=== PATIENT | male | born 1990 | race Caucasian/White ===

== ENCOUNTER 2022-10-15 10:52 | Emergency (ER) | payer OTHER, SELFPAY ==
[2022-10-15 10:54] VITALS: BP 142/82; PULSE 65; RESP 16; TEMP 36.8; O2SAT 100
[2022-10-15] MEDS: KETOROLAC 30 MG/ML VIAL (*BKC) IM (11:52)
[2022-10-15] MEDS: diazePAM INJ (*CRX) 10 MG/2 ML SYRINGE 5 MG IM (11:52)
[2022-10-15] MEDS: LIDOCAINE 5% PATCH 1 PATCH TRANSDERM (11:53)
--- NOTE | 2022-10-15 17:46 | ED.NECK ---
HPI - Neck Pain/Injury General Chief Complaint: Neck Pain/Injury Stated Complaint: neck pain Time Seen by Provider: 10/15/22 11:36 History of Present Illness HPI Narrative: 31-year-old male presents with pain to his neck started about 2 days ago, worse with movement from side to side, no fevers or chills or headache, no weakness or numbness anywhere, he had had a massage earlier which had helped but woke up this morning feeling worse, had had a sprain neck in the past that improved with muscle relaxants. Related Data Allergies Allergy/AdvReac Type Severity Reaction Status Date / Time amoxicillin Allergy Rash Verified 10/15/22 11:30 Review of Systems Review of Systems: CONST: No fever. HEENT: Neck pain C/V: No chest pain RESP: No cough GI: No nausea or vomiting : No dysuria. M/S: Bilateral neck pain worse with movement SKIN: No rash. NEURO: [No focal numbness or weakness] PSYCH: [No depression] Exam Narrative: EXAMINATION OF ORGAN SYSTEMS/BODY AREAS: Constitutional: Vital signs per nursing GENERAL:[No acute distress, non-toxic appearing.] HEAD: Normal with no signs of head trauma. EYES: EOMI, conjunctiva normal NECK: Some tenderness to palpation bilateral neck/shoulders, no midline tenderness ENT: Trachea midline LUNGS: Nonlabored breathing. HEART: [Regular rate and rhythm] EXT: Normal range of motion SKIN: [No rashes or lesions.] NEURO: [Alert and oriented x 3. No gross focal sensory or strength deficits.] PSYCH: Normal affect Course Vital Signs Vital signs: Vital Signs Temperature 98.3 F 10/15/22 10:54 Pulse Rate 65 10/15/22 10:54 Respiratory Rate 16 10/15/22 10:54 Blood Pressure 142/82 H 10/15/22 10:54 Pulse Oximetry 100 10/15/22 10:54 Oxygen Delivery Room Air 10/15/22 10:54 Temperature 98.3 F 10/15/22 10:54 Pulse Rate 65 10/15/22 10:54 Respiratory Rate 16 10/15/22 10:54 Blood Pressure 142/82 H 10/15/22 10:54 Pulse Oximetry 100 10/15/22 10:54 Oxygen Delivery Room Air 10/15/22 10:54 MDM - Neck Pain/Injury MDM Narrative Medical decision making narrative: 31-year-old male presenting with suspected neck sprain, vital signs stable, no focal neurologic deficits or symptoms, I have very low concern for meningitis without any infectious symptoms or altered mental status, also doubt any vascular or spinal emergency without any recent trauma or neurologic symptoms. Patient declined any further work-up at this time and stated that he would just like to try some muscle relaxants since they helped last time, I feel this is a good plan. Valium ordered here with some improvement in symptoms. Prescription for muscle relaxants provided and he has follow-up with his doctor. Return precautions provided. Discharge Plan Discharge Clinical Impression: Strain of neck muscle Patient Disposition: Home, Self-Care Condition: Stable Instructions: Antibiotic Form, Neck Pain (ED) Additional Instructions: Please follow up with your doctor in 2 days; if you experience any new numbness/weakness/tingling or worsening headache or fevers/chills, or any other concerning symptoms, please come back to the ER immediately. Do NOT operate heavy machinery while taking the muscle relaxants. Prescriptions: New methocarbamol 750 mg tablet 750 mg PO TID Qty: 15 0RF lidocaine 5 % adhesive patch,medicated 1 patch topical DAILY Qty: 15 0RF Rx Instructions: leave on most painful area for up to 12 hrs ibuprofen 600 mg tablet 600 mg PO TID PRN (Reason: fever or pain) Qty: 30 0RF Follow-up/Referrals: Yehuda Craig MD [Physician] - 2 Days Stand Alone Forms: Work/School Release IP
== END 2022-10-15 12:07 | disposition home or self-care (01) ==
LOC: ANHED 11:52
PROVIDERS: Emergency Provider Emergency Medicine
DX: S16.1XXA Strain of muscle, fascia and tendon at neck level, initial encounter (principal); X58.XXXA Exposure to other specified factors, initial encounter
CPT/HCPCS: 96372; 99284; A9270; J1885; J3360